=== PATIENT | male | born 1975 | race Caucasian/White ===

== ENCOUNTER 2016-09-27 15:12 | Emergency (ER) | payer SELFPAY ==
[2016-09-27] MEDS ORDERED: Marcaine 0.5% SDV 10 ML ONE (15:17)
[2016-09-27] MEDS ORDERED: KEFZOL 1 GM IM ONE (15:17)
[2016-09-27] MEDS ORDERED: BACIGUENT PACKET TP ONE (15:17)
[2016-09-27] MEDS ORDERED: Adacel Vial IM ONE (15:17)
[2016-09-27] MEDS ORDERED: Marcaine 0.5% SDV 10 ML IJ ONE (15:17)
[2016-09-27] MEDS ORDERED: KEFZOL 1 GM ONE (15:35)
[2016-09-27] MEDS ORDERED: XYLOCAINE 1% HCL 20 ML MDV ONE (15:35)
[2016-09-27] MEDS ORDERED: BACIGUENT PACKET ONE (15:35)
--- NOTE | 2016-09-27 15:37 | ERPHSYRPT ---
- History of Present Illness Time Seen by Provider: 09/27/16 15:17 Source: patient Patient Subjective Stated Complaint: PT STATES HE LACERATED LEFT MIDDLE FINGER AT WORK WITH A BOLT. Triage Nursing Assessment: PT PINK, WARM, DRY. RADIAL PULSE STRONG. 2CM LACERATION TO LEFT MIDDLE NAIL BED NOTED. Physician History: CC: left long finger injury Hx: 41 y/o healthy hailey was working for [employer]. He smashed left long finger in a bolt [employer]. Pain moderately severe. No other injuries. Last tetanus 4 years ago. Thinks maybe allergic to codiene. Occurred: just prior to arrival Extremities Pain Location: 3rd finger: left Allergies/Adverse Reactions: codeine Allergy (Verified 09/27/16 15:22) Hx Tetanus, Diphtheria Vaccination/Date Given: Yes (UP TO DATE) Hx Influenza Vaccination/Date Given: Yes Hx Pneumococcal Vaccination/Date Given: No Immunizations Up to Date: Yes - Review of Systems Constitutional: No Symptoms Abdominal/Gastrointestinal: No Nausea, No Vomiting Musculoskeletal: Injury (left long finger), No Back Pain, No Neck Pain Skin: Skin Lesions (cut to finger) Neurological: No Focal Weakness, No Parasthesia All Other Systems: Reviewed and Negative - Past Medical History Pertinent Past Medical History: No - Past Surgical History Past Surgical History: No - Social History Smoking Status: Current every day smoker How long have you smoked: 20 Exposure to second hand smoke: Yes Drug Use: none Patient Lives Alone: No - Nursing Vital Signs Nursing Vital Signs: Initial Vital Signs Temperature 98.7 F 09/27/16 15:16 Pulse Rate 64 09/27/16 15:16 Respiratory Rate 20 09/27/16 15:16 Blood Pressure 136/82 09/27/16 15:16 O2 Sat by Pulse Oximetry 96 09/27/16 15:16 Pain Scale Pain Intensity 0 - Physical Exam General Appearance: alert Eyes, Ears, Nose, Throat Exam: moist mucous membranes Neck Exam: supple Cardiovascular/Respiratory Exam: regular rate/rhythm Neuro/Tendon Exam: normal sensation, normal motor functions Mental Status Exam: alert, oriented x 3, cooperative Skin Exam: warm, dry SpO2: 96 Oxygen Delivery: Room Air Comments: left long finger tender distally, horizontal laceration thru nail bed and dorsal distal finger. Cap refill intact. The hands have dirt and grease. Procedures - Laceration/Wound Repair left long finger Wound Length (cm): 2.5 Wound's Depth, Shape: irregular, contused tissue Wound Explored: no foreign body noted Irrigated: Yes (copious NS) Hibiclens Prep: Yes Anesthesia: digital block, marcaine 0.5 Volume Anesthetic (ccs): 4 Wound Debrided: minimal Progress: 09/27/16 16:56 Wound cleansed and irrigated. The distal nail was almost completely avulsed and was removed. There is contused nail bed laceration. There is laceration radial side skin closed with 4-0 nylon simple interupted. The nail bed was reapproximated with good hemostasis with 5-0 vicryl interupted. There was a small skin avusion superficially on pad closed with a steri strip. - Course Nursing assessment & vital signs reviewed: Yes - Radiology Exams left long finger X-ray Interpretation: Teleradiologist Report (minimally displaced tuft fx) Ordered Tests: Active Orders 24 hr Category Date Time Status Prepare for Sutures STAT Care 09/27/16 15:17 Active Sutures STAT Care 09/27/16 15:17 Active Wound Care STAT Care 09/27/16 15:17 Active FINGER(S) Stat Exams 09/27/16 Completed Medication Summary Discontinued Medications Generic Name Dose Route Start Last Admin Trade Name Freq PRN Reason Stop Dose Admin Bacitracin 0.9 gm 09/27/16 15:17 09/27/16 15:37 Baciguent Packet TP 09/27/16 15:18 0.9 gm STAT ONE Administration Bacitracin Confirm 09/27/16 15:35 Baciguent Packet Administered 09/27/16 15:36 Dose 1 gm .ROUTE .STK-MED ONE Bupivacaine HCl 5 ml 09/27/16 15:17 09/27/16 15:38 Marcaine 0.5% Sdv 10 Ml IJ 09/27/16 15:18 5 ml STAT ONE Administration Bupivacaine HCl Confirm 09/27/16 15:17 Marcaine 0.5% Sdv 10 Ml Administered 09/27/16 15:18 Dose 10 ml .ROUTE .STK-MED ONE Cefazolin Sodium 1 g 09/27/16 15:17 09/27/16 15:38 Kefzol 1 Gm IM 09/27/16 15:18 1 g STAT ONE Administration Cefazolin Sodium Confirm 09/27/16 15:35 Kefzol 1 Gm Administered 09/27/16 15:36 Dose 1 g .ROUTE .STK-MED ONE Diphtheria/Tetanus/Acell Pertussis 0.5 ml 09/27/16 15:17 09/27/16 15:39 Adacel Vial IM 09/27/16 15:18 Not Given .ONCE ONE Lidocaine HCl Confirm 09/27/16 15:35 Xylocaine 1% Hcl 20 Ml Mdv Administered 09/27/16 15:36 Dose 3 ml .ROUTE .STK-MED ONE - Progress Progress Note: 09/27/16 15:36 0.5% plain bupivicaine 4ml used for left long finger digital nerve block. 09/27/16 16:58 Discussed risk of nail bed deformity, loss of nail, infection, pain. Pt understands. He agreed for repair. He plans to follow up with Dr Tay. Wound care instr given. Counseled pt/family regarding: diagnosis, need for follow-up, rad results - Departure Time of Disposition: 16:59 Departure Disposition: Home Clinical Impression: Open fracture of tuft of distal phalanx of finger Laceration of finger nail bed Qualifiers: Encounter type: initial encounter Qualified Code(s): S61.319A - Laceration without foreign body of unspecified finger with damage to nail, initial encounter Condition: Stable Critical Care Time: No Referrals: ALYSON TAY [Primary Care Provider] - Instructions: Care for a Laceration After Repair Additional Instructions: Elevate hand. Keep wound clean and dry. Wound check with Dr Tay or a hand surgeon in 2 days. Ibuprofen as directed for pain. Rx keflex. Prescriptions: Cephalexin Mh 500 mg [Keflex 500 mg] 1 cap PO QID #40 capsule
--- NOTE | 2016-09-27 16:30 | XRAY ---
Indication: Pain following injury. Comparison: None 3 views of the left third finger demonstrates minimally displaced distal tuft fracture with soft tissue swelling. No other bony, articular, or soft tissue abnormalities.
[2016-09-27 17:14] VITALS: BP 130/59; PULSE 79; O2SAT 100
== END 2016-09-27 17:15 | disposition home or self-care (01) ==
LOC: ED 15:12 → SUPCPDRO 15:12 → ED 17:15
PROC: 0HQGXZZ Repair Left Hand Skin, External Approach (ICD-10-PCS; principal; 2016-09-27)
DX: S61.319A Laceration without foreign body of unspecified finger with damage to nail, initial encounter (principal); S62.633B Displaced fracture of distal phalanx of left middle finger, initial encounter for open fracture; W45.8XXA Other foreign body or object entering through skin, initial encounter; Y92.69 Other specified industrial and construction area as the place of occurrence of the external cause; Y99.0 Civilian activity done for income or pay
CPT/HCPCS: 12001; 73140; 96372; 99284; J0690; A9270-GY